=== PATIENT | male | born 1935 | race Caucasian/White ===

== ENCOUNTER 2019-06-07 14:07 | Emergency (ER) | payer OTHER ==
[2019-06-07] MEDS ORDERED: ASPIRIN 81 MG CHEWABLE TABLET ONE (14:49)
[2019-06-07 14:53] LABS: Absolute Lymphocytes (CBC) 0.8 K/uL (0.7-4.9); Basophils % 0.4 % (0-1.3); Hematocrit 39.7 % (39.6-49.0); Lymphocytes % 8.2 % (15.3-44.8); MPV 7.9 fL (7.6-11.3); RBC Red Blood Cell Count 4.18 M/uL (4.33-5.43)
[2019-06-07 15:04] LABS: Protime INR 0.99
[2019-06-07 15:31] LABS: ALT/SGPT 26 U/L (12-78); AST/SGOT 18 U/L (15-37); Albumin 3.1 g/dL (3.4-5.0); Alkaline Phosphatase 69 U/L (45-117); BUN Blood Urea Nitrogen 30 mg/dL (7-18); Bicarbonate 25 mmol/L (21-32); Bilirubin Direct 0.2 mg/dL (0-0.2); Bilirubin Total 0.6 mg/dL (0.2-1.0); Glucose Level 172 mg/dL (74-106); NT PRO-BNP 3118 pg/mL (<450); Potassium 4.2 mmol/L (3.5-5.1); Protein, Total 6.8 g/dL (6.4-8.2); Sodium Level 140 mmol/L (136-145); Troponin (Emerg Dept Use Only) < 0.02 ng/mL (0.0-0.045)
--- NOTE | 2019-06-07 16:13 | RAD REPORT ---
EXAM DESCRIPTION: CT - Chest Abd Pelvis Wo Con - 06/07/2019 3:56 pm CLINICAL HISTORY: Chest and abdominal pain COMPARISON: none TECHNIQUE: Computed axial tomography of the chest, abdomen and pelvis was obtained. Oral contrast wa s given. IV contrast was not requested. All CT scans are performed using dose optimization technique as appropriate and may include automated exposure control or mA/KV adjustment according to patient size. FINDINGS: The evaluation of mediastinum, lila, vessels and solid organs is limited secondary to the lack of IV contrast administration Minimal bibasilar atelectasis. 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 No stranding within the adjacent fat to suggest inflammation. Small mediastinal lymph nodes may be reactive in nature. A pleural effusion is not present. A pericardial effusion is not seen. The liver, spleen, pancreas, and adrenal appear grossly normal. Renal cysts. Tiny bilateral nonobstructing renal calculi. There is no evidence of diverticulitis. Appendicolith without adjacent appendiceal stranding. No dila tation of the appendix. 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 Tiny nonobstructing renal calculi
--- NOTE | 2019-06-07 16:32 | RAD REPORT ---
EXAM DESCRIPTION: [facility] Single View06/07/2019 2:56 pm CLINICAL HISTORY: Chest pain COMPARISON: 2010 FINDINGS: The lungs appear clear of acute infiltrate. The heart is normal size. Very large diaphragmatic hernia without significant change
[2019-06-07] MEDS ORDERED: NA CHLORIDE 0.9% 1,000 ML ONE (16:46)
--- NOTE | 2019-06-07 17:05 | EDPHYS ---
Physician Documentation [facility] Name: Harley Hassan Age: 83 yrs Sex: Male : 1935 Arrival Date: 06/07/2019 Time: 14:10 Bed 5 Private MD: ED Physician Mychal Hobson HPI: 06/07 15:23 This 83 yrs old Male presents to ER via Wheelchair with complaints of wa Shortness Of Breath. 15:23 The patient has shortness of breath at rest, with light activity. Onset: The wa symptoms/episode began/occurred 2 day(s) ago. Duration: The symptoms are continuous, and are steadily getting worse. The patient's shortness of breath is aggravated by nothing, coughing, is alleviated by nothing. Associated signs and symptoms: Pertinent positives: chest discomfort. Severity of symptoms: At their worst the symptoms were moderate in the emergency department the symptoms are unchanged. The patient has not experienced similar symptoms in the past. The patient has not recently seen a physician. c/o SOB and chest tightness assoc with minimal exertion x 2 days. Historical: - Allergies: 14:28 No Known Allergies; ss - Home Meds: 14:28 donepezil 10 mg oral tab 1 tab once daily [Active]; metoprolol tartrate 100 mg Oral tab ss [Active]; 14:32 finasteride 5 mg oral tab 1 tab once daily [Active]; Memantine HCL 10 mg [Active]; ss - PMHx: 14:28 Dementia; ss - Immunization history:: Adult Immunizations up to date. - Social history:: Smoking status: Patient/guardian denies using tobacco. - Ebola Screening: : No symptoms or risks identified at this time. - Family history:: not pertinent. - Hospitalizations: : No recent hospitalization is reported. ROS: 15:25 Constitutional: Negative for fever, chills, and weight loss, Eyes: Negative for injury, wa pain, redness, and discharge, ENT: Negative for injury, pain, and discharge, Neck: Negative for injury, pain, and swelling, Abdomen/GI: Negative for abdominal pain, nausea, vomiting, diarrhea, and constipation, Back: Negative for injury and pain, : Negative for injury, bleeding, discharge, and swelling, MS/Extremity: Negative for injury and deformity, Skin: Negative for injury, rash, and discoloration, Neuro: Negative for headache, weakness, numbness, tingling, and seizure, Psych: Negative for depression, anxiety, suicide ideation, homicidal ideation, and hallucinations. 15:25 Cardiovascular: Positive for chest pain, Negative for edema, orthopnea, palpitations. 15:25 Respiratory: Positive for dyspnea on exertion, shortness of breath, Negative for cough, hemoptysis. Exam: 15:26 Constitutional: This is a well developed, well nourished patient who is awake, alert, wa and in no acute distress. Head/Face: Normocephalic, atraumatic. Eyes: Pupils equal round and reactive to light, extra-ocular motions intact. Lids and lashes normal. Conjunctiva and sclera are non-icteric and not injected. Cornea within normal limits. Periorbital areas with no swelling, redness, or edema. ENT: Nares patent. No nasal discharge, no septal abnormalities noted. Tympanic membranes are normal and external auditory canals are clear. Oropharynx with no redness, swelling, or masses, exudates, or evidence of obstruction, uvula midline. Mucous membranes moist. Neck: Trachea midline, no thyromegaly or masses palpated, and no cervical lymphadenopathy. Supple, full range of motion without nuchal rigidity, or vertebral point tenderness. No Meningismus. Chest/axilla: Normal chest wall appearance and motion. Nontender with no deformity. No lesions are appreciated. Abdomen/GI: Soft, non-tender, with normal bowel sounds. No distension or tympany. No guarding or rebound. No evidence of tenderness throughout. Back: No spinal tenderness. No costovertebral tenderness. Full range of motion. Skin: Warm, dry with normal turgor. Normal color with no rashes, no lesions, and no evidence of cellulitis. MS/ Extremity: Pulses equal, no cyanosis. Neurovascular intact. Full, normal range of motion. Neuro: Awake and alert, GCS 15, oriented to person, place, time, and situation. Cranial nerves II-XII grossly intact. Motor strength 5/5 in all extremities. Sensory grossly intact. Cerebellar exam normal. Normal gait. Psych: Awake, alert, with orientation to person, place and time. Behavior, mood, and affect are within normal limits. 15:26 Cardiovascular: Rate: normal, Rhythm: regular, Pulses: no pulse deficits are appreciated, Heart sounds: normal, Edema: is not appreciated, JVD: is not appreciated. 15:26 Respiratory: the patient does not display signs of respiratory distress, Respirations: normal, Breath sounds: are clear throughout, Respiratory rate: normal Vital Signs: 14:21 BP 106 / 84; Pulse 87; Resp 18; Temp 97.6(O); Pulse Ox 98% on R/A; Height 5 ft. 8 in. ss (172.72 cm); Pain 0/10; 15:03 BP 104 / 59; Pulse 80; Resp 18; Pulse Ox 96% on R/A; sv 16:08 BP 118 / 81; Pulse 73; Resp 20; Pulse Ox 97% ; sv 16:39 BP 102 / 71; Pulse 72; Resp 16; Pulse Ox 96% ; sv 17:26 BP 111 / 71; Pulse 68; Resp 15; Pulse Ox 99% on R/A; sv 18:48 BP 155 / 96; Pulse 78; Resp 22; Pulse Ox 97% ; sv MDM: 14:18 Patient medically screened. ok 15:26 Differential diagnosis: Anemia Anxiety Reaction asthma, Bronchitis CHF exacerbation, wa Chronic Obstructive Pulmonary Disease Myocardial Infarction pneumonia, Pneumothorax Psychogenic pulmonary edema, Pulmonary Embolism reactive airway disease, Sepsis Unstable Angina. 16:43 Data reviewed: vital signs, nurses notes, lab test result(s), EKG, radiologic studies. ok Test interpretation: by ED physician or midlevel provider: CXR: very large hiatal hernia. CT chest/abd/pelvis: large diaphragmatic hernia containing gastric and colon with assoc gastric volvulus. 16:45 Test interpretation: by ED physician or midlevel provider: labs noted for hyperglycemia ok at 172. BUN/Cr 30/2.11. low plt at 134. elevated BNP at 3118. Response to treatment: the patient's symptoms have mildly improved after treatment. ED course: pt with large hiatal hernia with gastric/colon, and voluvulus. will effect transfer for surgical eval due to risk of incarceration. 17:02 ED course: pt accepted by Dr. Curiel at [facility] for further eval. ok 17:05 Test interpretation: by ED physician or midlevel provider: EKG: HR 84. sinus. nml axis. wa non-specific ST-T changes. 18:02 Special discussion: pt had been accepted by Dr. Curiel but no beds at [facility]. Pt wa therefore transferred to Dr. Alatorre at [facility]. he advised NG tube prior to transport. will place NG. . 06/07 14:33 Order name: Basic Metabolic Panel; Complete Time: 15:34 ok 06/07 14:33 Order name: CBC with Diff; Complete Time: 15:34 ok 06/07 14:33 Order name: LFT's; Complete Time: 15:34 ok 06/07 14:33 Order name: Magnesium; Complete Time: 15:34 ok 06/07 14:33 Order name: NT PRO-BNP; Complete Time: 15:34 ok 06/07 14:33 Order name: PT-INR; Complete Time: 15:34 ok 06/07 14:33 Order name: Troponin (emerg Dept Use Only); Complete Time: 15:33 ok 06/07 14:33 Order name: XRAY Chest (1 view); Complete Time: 16:42 ok 06/07 15:36 Order name: CT Chest Abdomen Pelvis W/O Contrast; Complete Time: 16:28 ok 06/07 15:54 Order name: Urine Microscopic Only; Complete Time: 17:46 ok 06/07 16:17 Order name: Urine Dipstick--Ancillary (enter results) bd 06/07 17:26 Order name: Urine Culture EDMS 06/07 14:18 Order name: EKG; Complete Time: 14:18 06/07 14:18 Order name: EKG - Nurse/Tech; Complete Time: 14:18 06/07 14:33 Order name: Cardiac monitoring; Complete Time: 14:55 ok 06/07 14:33 Order name: IV Saline Lock; Complete Time: 14:55 ok 06/07 14:33 Order name: Labs collected and sent; Complete Time: 14:55 ok 06/07 14:33 Order name: O2 Per Protocol; Complete Time: 14:55 ok 06/07 14:33 Order name: O2 Sat Monitoring; Complete Time: 14:55 ok 06/07 15:54 Order name: Urine Dipstick-Ancillary (obtain specimen); Complete Time: 16:20 ok Administered Medications: 14:54 Drug: Aspirin Chewable Tablet 243 mg Route: PO; sv 15:30 Follow up: Response: No adverse reaction sv 16:53 Drug: NS 0.9% 1000 ml Route: IV; Rate: 1 bolus; Site: right antecubital; sv Disposition: 06/07/19 17:04 Transfer ordered to [facility]. Diagnosis are acute shortness of breath, acute chest pain, large diaphragmatic hernia with gastric volvulus, hyperglycemia, renal insufficiency. - Reason for transfer: Higher level of care. - Accepting physician is Dr. Moisés Solis. - Condition is Stable. - Problem is new. - Symptoms have improved. Signatures: Dispatcher [employer] EDViridiana Li RN RN sv Smirch, Shelby, RN RN ss Antunez, Elena, RN RN ea Appiah, William, MD MD wa Corrections: (The following items were deleted from the chart) 17:05 17:04 06/07/2019 17:04 Transfer ordered to [facility]. Diagnosis is wa acute shortness of breath; acute chest pain; large diaphragmatic hernia with gastric volvulus. Reason for transfer: Higher level of care. Accepting physician is Dr. Moisés Solis. Condition is Stable. Problem is new. Symptoms have improved. ok 19:27 17:05 06/07/2019 17:04 Transfer ordered to [facility]. Diagnosis is ea acute shortness of breath; acute chest pain; large diaphragmatic hernia with gastric volvulus; hyperglycemia; renal insufficiency. Reason for transfer: Higher level of care. Accepting physician is Dr. Moisés Solis. Condition is Stable. Problem is new. Symptoms have improved. michelle
--- NOTE | 2019-06-07 17:05 | ER ---
Nurse's Notes [facility] Name: Harley Hassan Age: 83 yrs Sex: Male : 1935 Arrival Date: 06/07/2019 Time: 14:10 Bed 5 Private MD: Diagnosis: acute shortness of breath;acute chest pain;large diaphragmatic hernia with gastric volvulus;hyperglycemia;renal insufficiency Presentation: 06/07 14:22 Presenting complaint: daughter reports that patient has been becoming increasingly ss short of breath on exertion for the past week. Was seen at [facility] today and had XRAY done which showed fluid accumulation due to a hernia. [facility] was concerned because patient's blood pressure was low, reportedly 90/?? Patient denies pain. Transition of care: patient was not received from another setting of care. Onset of symptoms is unknown. Risk Assessment: Do you want to hurt yourself or someone else? Patient reports no desire to harm self or others. Initial Sepsis Screen: Does the patient meet any 2 criteria? No. Patient's initial sepsis screen is negative. Does the patient have a suspected source of infection? No. Patient's initial sepsis screen is negative. Care prior to arrival: None. 14:22 Method Of Arrival: Wheelchair ss 14:22 Acuity: RENÉE 3 ss Historical: - Allergies: 14:28 No Known Allergies; ss - Home Meds: 14:28 donepezil 10 mg oral tab 1 tab once daily [Active]; metoprolol tartrate 100 mg Oral tab ss [Active]; 14:32 finasteride 5 mg oral tab 1 tab once daily [Active]; Memantine HCL 10 mg [Active]; ss - PMHx: 14:28 Dementia; ss - Immunization history:: Adult Immunizations up to date. - Social history:: Smoking status: Patient/guardian denies using tobacco. - Ebola Screening: : No symptoms or risks identified at this time. - Family history:: not pertinent. - Hospitalizations: : No recent hospitalization is reported. Screenin:24 Abuse screen: Denies threats or abuse. Denies injuries from another. Nutritional sv screening: No deficits noted. Tuberculosis screening: No symptoms or risk factors identified. Fall Risk None identified. Assessment: 14:25 General: Appears in no apparent distress. comfortable, slender, Behavior is calm, sv cooperative, appropriate for age. General: Reports intermittent headaches for the past couple of weeks. Pain: Denies pain. Neuro: Level of Consciousness is awake, alert, obeys commands, Oriented to person, place, time, situation, Moves all extremities. Full function Speech is normal. Cardiovascular: Heart tones S1 S2 present Patient's skin is warm and dry. Pulses are 3+ in right radial artery and left radial artery Rhythm is sinus rhythm Chest pain is denied. Respiratory: Airway is patent Respiratory effort is even, unlabored, Respiratory pattern is regular, symmetrical, Breath sounds are diminished in left posterior lower lobe, right posterior middle lobe and right posterior lower lobe. Derm: Skin is pale. Musculoskeletal: Range of motion: intact in all extremities. 15:06 Reassessment: Patient appears in no apparent distress at this time. No changes from sv previously documented assessment. Patient and/or family updated on plan of care and expected duration. Pain level reassessed. Patient is alert, oriented x 3, equal unlabored respirations, skin warm/dry/pink. 16:20 Reassessment: Patient appears in no apparent distress at this time. No changes from sv previously documented assessment. Patient and/or family updated on plan of care and expected duration. Pain level reassessed. Patient is alert, oriented x 3, equal unlabored respirations, skin warm/dry/pink. 17:26 Reassessment: Patient appears in no apparent distress at this time. No changes from sv previously documented assessment. Patient and/or family updated on plan of care and expected duration. Pain level reassessed. Patient is alert, oriented x 3, equal unlabored respirations, skin warm/dry/pink. 18:31 Reassessment: Patient appears in no apparent distress at this time. No changes from sv previously documented assessment. Patient and/or family updated on plan of care and expected duration. Pain level reassessed. Patient is alert, oriented x 3, equal unlabored respirations, skin warm/dry/pink. Vital Signs: 14:21 BP 106 / 84; Pulse 87; Resp 18; Temp 97.6(O); Pulse Ox 98% on R/A; Height 5 ft. 8 in. ss (172.72 cm); Pain 0/10; 15:03 BP 104 / 59; Pulse 80; Resp 18; Pulse Ox 96% on R/A; sv 16:08 BP 118 / 81; Pulse 73; Resp 20; Pulse Ox 97% ; sv 16:39 BP 102 / 71; Pulse 72; Resp 16; Pulse Ox 96% ; sv 17:26 BP 111 / 71; Pulse 68; Resp 15; Pulse Ox 99% on R/A; sv 18:48 BP 155 / 96; Pulse 78; Resp 22; Pulse Ox 97% ; sv ED Course: 14:10 Patient arrived in ED. mr 14:17 Viridiana Moreno, RN is Primary Nurse. sv 14:17 Arm band placed on. sv 14:17 Patient has correct armband on for positive identification. Placed in gown. Bed in low sv position. Call light in reach. Adult w/ patient. campus monitor on. Pulse ox on. NIBP on. 14:18 Mychal Hobson MD is Attending Physician. wa 14:22 EKG done, by emissions repair technician. reviewed by Mychal Hobson MD. sm3 14:26 Triage completed. ss 14:29 ED physician to see patient. sv 14:29 Patient maintains SpO2 saturation greater than 95% on room air. sv 14:40 Inserted saline lock: 20 gauge in right antecubital area, using aseptic technique. sv Blood collected. Flushed right antecubital with 5 ml normal saline. 14:55 X-ray(s) taken. sv 14:57 XRAY Chest (1 view) In Process Unspecified. EDMS 15:56 CT Chest Abdomen Pelvis W/O Contrast In Process Unspecified. EDMS 17:14 attempted transfer to [facility], pt denied due to no beds per [facility]. bd 17:26 transfer approval from receiving facility. sv 18:30 NGT: inserted 14 Fr. via right nare. verified placement of air over stomach, verified sv return of gastric contents, to intermittent suction. Returned gastric contents. Patient tolerated well. 18:54 transfer transportation to receiving facility. sv 19:01 Primary Nurse role handed off by Viridiana Moreno, EMMA sv Administered Medications: 14:54 Drug: Aspirin Chewable Tablet 243 mg Route: PO; sv 15:30 Follow up: Response: No adverse reaction sv 16:53 Drug: NS 0.9% 1000 ml Route: IV; Rate: 1 bolus; Site: right antecubital; sv Outcome: 17:04 ER care complete, transfer ordered by . wa 19:27 Patient left the ED. ea Signatures: Dispatcher [employer] EDMS Dirrim, Janie bd Josh, Viridiana, EMMA Olsena, Rita mr Jose David, Nafisa, Shu Kwon RN, RN RN ea Appiah, William, MD MD wa Montes, Violeta 3
[2019-06-07 17:20] LABS: Urine Bacteria 20-50 /HPF (NONE SEEN); Urine RBC <5 /HPF (NONE SEEN)
[2019-06-07 17:22] LABS: Calcium Oxalate Crystals- Ur PRESENT (NONE SEEN); Urine Culture Reflex Order REFLEXED; Urine Mucus 2+ /HPF (NONE SEEN)
--- NOTE | 2019-06-07 17:31 | EKG ---
Test Date: 2019-06-07 Test Time: 14:17:10 [employer] System: SANDY MEASUREMENT RESULTS: Intervals: Rate: 84 MD: 150 QRSD: 76 QT: 378 QTc: 446 [place]: P: 65 MD: 150 QRS: 84 T: 68 INTERPRETIVE STATEMENTS: Normal sinus rhythm Nonspecific ST abnormality Abnormal ECG Compared to ECG 05/30/2011 18:07:05 Sinus tachycardia no longer present ST (T wave) deviation still present Electronically Signed On 06-07-19 17:30:33 CDT by Kuldip Keita
[2019-06-07] MEDS ORDERED: LIDOCAINE VISCOUS 2% SOLN 15 ML UDC ONE (18:13)
[2019-06-07 18:18] LABS: Urine Blood NEGATIVE (NEG); Urine Glucose NEGATIVE (NEG); Urine Protein 1+ (NEG); Urine Specific Gravity >1.030 (1.005-1.030)
[2019-06-07 21:01] VITALS: TEMP 97.6
[2019-06-07 21:07] VITALS: BP 155/96; O2SAT 97
== END 2019-06-07 19:27 | disposition short-term general hospital (02) ==
LOC: ER 14:07
DX: R07.9 Chest pain, unspecified (principal); K44.0 Diaphragmatic hernia with obstruction, without gangrene; R73.9 Hyperglycemia, unspecified; N28.9 Disorder of kidney and ureter, unspecified; F03.90 Unspecified dementia, unspecified severity, without behavioral disturbance, psychotic disturbance, mood disturbance, and anxiety
CPT/HCPCS: 93005; 87088; 85025; 87086; 80048; 36415; 83735; 85610; 80076; 84484; 83880; 71250; 74176; 71045; J7030; 81003; 81015; 99285